=== PATIENT | male | born 1930 | race Caucasian/White ===

== ENCOUNTER 2017-03-12 09:55 | Inpatient (IN) | payer MEDICARE, OTHER ==
--- NOTE | ~2017-03-12 | CN ---
Consultation Report [facility] [address] [place]. [address] NAME: NIKOLAS GUTIERREZ : 30 STATUS : ADM IN [facility]#: [id number] AGE: 86 ADM/REG DATE : 03/12/17 MR#: [id number] REPORT SERV DATE: 03/19/17 DICTATED BY: EULALIO PINZON DATE: 03/19/17 REPORT STATUS : Draft TRANSCRIBED BY: MODL DATE: 03/19/17 ELECTROPHYSIOLOGY CONSULTATION DATE OF CONSULTATION: 03/19/2017 REASON FOR CONSULTATION: Regarding atrial arrhythmia and bradycardia in a patient with known ischemic cardiomyopathy. HISTORY OF PRESENT ILLNESS: Mr. Gutierrez is a very pleasant 86-year-old gentleman, who is a patient of Dr. Andrei Fabian. The patient has a known history of longstanding coronary artery disease, status post two separate bypass procedures, the last performed in 2002. He has had a progressive decline in his LV systolic function to 35%, which occurred despite use of the congestive heart failure medications including carvedilol and irbesartan. He presented to Dr. Fabian's office with signs of overt congestive heart failure, acute on chronic. He was admitted to the hospital, has received IV diuresis, and his symptoms are improving. During his stay here, he was found to be in some form of atrial flutter and paradoxically is in bradycardia with heart rates that have been in the 40s at times. This is very much limited use of appropriate congestive heart failure medications, especially the use of carvedilol. I have been asked to see him to discuss other potential options regarding both his atrial arrhythmia as well as his underlying bradycardia. PAST MEDICAL HISTORY: Notable for: 1. Coronary artery disease, status post CAB on two separate procedures, the last of which was in 2002. 2. Mitral regurgitation. 3. Secondary pulmonary hypertension. 4. Ischemic cardiomyopathy, ejection fraction 35%. 5. CKD 3. 6. Hypertension. 7. Systolic heart failure class 3. FAMILY HISTORY: Negative for premature coronary disease or sudden cardiac . SOCIAL HISTORY: Negative for tobacco. Drinks one cup of caffeinated coffee a day. No history of alcohol use. REVIEW OF SYSTEMS: As noted above. All other systems reviewed and negative. PHYSICAL EXAMINATION: VITAL SIGNS: His blood pressure earlier today was 156/70, his pulse is 60, respirations 16. Pulse has been at times in the 40s. GENERAL: Well developed, well nourished. The patient is comfortable, denies any acute distress. Consultation Report [facility] [address] [place]. [address] NAME: NIKOLAS GUTIERREZ : 30 STATUS : ADM IN PAT#: [id number] AGE: 86 ADM/REG DATE : 03/12/17 MR#: [id number] REPORT SERV DATE: 03/19/17 DICTATED BY: EULALIO PINZON DATE: 03/19/17 REPORT STATUS : Draft TRANSCRIBED BY: DALTON DATE: 03/19/17 HEENT: No icterus. Good dentition. NECK: Supple. No masses or thyromegaly. LUNGS: Breathing comfortably. No rales or wheezes. COR: Normal S1, S2. No S3 or S4. No murmurs, clicks, rubs. No JVD. ABD: Soft, nondistended, nontender. No hepatosplenomegaly. EXT: No clubbing, cyanosis, or edema. Peripheral pulses 2+/= bilaterally. SKIN: Warm and dry. No visible lesions. MS: Chest wall without deformity. No obvious clavicular fractures. NEURO/PSYCH: Oriented X3. No anxiety or depression. DATA: EKG shows very fine atrial flutter waves, most prominent in leads III and aVF, in which they are completely negative, much harder to see in lead II, also appeared to be negative there. Heart rate of 48 beats per minute. QRS duration of 96 milliseconds. QT interval corrected at 488 milliseconds. LABORATORY VALUES: GFR of 25 with a creatinine of 2.38, which is baseline. Electrolytes, BUN and creatinine, white blood cell count, hematocrit, platelet count all within normal limits. IMPRESSION: A pleasant gentleman with the following issues: 1. Class 3 congestive heart failure, acute on chronic with ischemic cardiomyopathy, ejection fraction 35% despite use of Coreg and ARB. These medicines have been limited by both renal insufficiency and underlying bradycardia. 2. Atrial flutter, unclear if this is typical or atypical. Some features suggest it could be typical, although I cannot be absolutely certain. 3. Bradycardia, possibly secondary to the underlying atrial flutter. 4. Renal insufficiency, GFR 25. 5. Pulmonary hypertension. Recommend we could consider placement of a biventricular pacing or defibrillator. The patient does have bradycardia, the patient does have congestive heart failure and if he requires ventricular pacing, it should be in the form of biventricular pacing. His ejection fraction has reduced despite appropriate medications. He is in heart failure on this admission. Another option would be to consider ablating the atrial flutter if it is found to be typical. The way to determine this would be to have him undergo electrophysiology study and do mapping and if it does appear to be a TV-IVC isthmus flutter, we should be able to successfully ablate it. If we do restore sinus rhythm, we may find that the underlying heart rate is significantly higher than what he has in atrial flutter. This may be true because of less stress on the AV node. If he is not bradycardic, then this may obviate the need for a biventricular pacing device with increased risk of long procedure time, hypotension, excessive dye use, all of which are important given his underlying renal insufficiency. I will discuss these issues with Dr. Fabian. In the meantime, the patient is on IV heparin, I would continue this. We will follow him for worsening bradycardia. Consultation Report [facility] [id number] [facility] [place]. [address] NAME: NIKOLAS GUTIERREZ : 30 STATUS : ADM IN [facility]#: [id number] AGE: 86 ADM/REG DATE : 03/12/17 MR#: [id number] REPORT SERV DATE: 03/19/17 DICTATED BY: EULALIO PINZON DATE: 03/19/17 REPORT STATUS : Draft TRANSCRIBED BY: DALTON DATE: 03/19/17 AMARIS/DALTON Eulalio Pinzon M.D. / [id number] CC: MD Bobby Robles Lisa M
--- NOTE | ~2017-03-12 | DS ---
Discharge Summary [facility] [address] [place]. [address] NAME: NIKOLAS VILLATORO : 30 STATUS : DIS IN PAT#: [id number] AGE: 86 ADM/REG DATE : 03/12/17 MR#: [id number] REPORT SERV DATE: 04/11/17 DICTATED BY: MEAGAN FABIAN DATE: 04/10/17 REPORT STATUS : Draft TRANSCRIBED BY: MODJyoti DATE: 04/10/17 Data Collection from hospitalization DISCHARGE DIAGNOSES: 1. Hvsot-[id number] systolic congestive heart failure. 2. Coronary artery disease status post coronary artery bypass grafting. 3. Acute/chronic kidney disease. 4. Hypertension. 5. Type 2 diabetes. 6. Secondary pulmonary hypertension. 7. Ischemic cardiomyopathy. CONSULTATION: Dr. Anthony Hopkins. PROCEDURES PERFORMED: Ablation/pacemaker placement, 03/22/2017. MEDICATIONS: Zyloprim 100 mg daily, Norvasc 5 mg twice a day, Eliquis 2.5 mg twice a day, Halfprin 81 mg daily, Cosopt one drop twice a day in both eyes, Pepcid 20 mg daily, Lasix 40 mg twice a day, Apresoline 50 mg every eight hours, Lantus injection insulin 10 units subcutaneously twice a day, Humalog 10 units subcutaneously before meals, Isordil 20 mg every eight hours, Synthroid 25 mcg daily, Lovaza 3 g daily, Prilosec 20 mg daily, K-Tab 10 mEq as instructed, Zantac 150 mg daily, Crestor 5 mg at bedtime, Travatan one drop daily as instructed. He was instructed not to continue Coreg or spironolactone. CONDITION AT DISCHARGE: Stable. DISPOSITION: The patient was discharged home on an 1800-calorie cardiac/diabetic diet with activities as instructed. He would follow up with me as instructed. He would follow up with Dr. Job Go, 04/26/2017. He would follow up with me one week following discharge. HOSPITAL COURSE: This is an 86-year-old man, who has known coronary heart disease and chronic systolic heart failure. He had developed progressive exertional dyspnea, weight gain, and lower extremity edema over the last several weeks prior to admission. He was recently diagnosed with ischemic cardiomyopathy with a baseline ejection fraction of approximately 35%. This was somewhat decreased from previous baseline of 50%. He was last seen in the Cardiology Clinic in February 2017. He had physical exam findings consistent with right-sided pleural effusion as well as other signs of decompensated congestive heart failure. Lasix dose was increased. The patient failed to have any significant improvement in his symptoms. He presented back to the Cardiology Clinic on the day of this admission and was found to have evidence of worsening volume overload. It was felt that the patient should be admitted for IV diuresis. He was admitted to the hospital at this time for further evaluation and treatment. Upon admission, he was felt to have acute on chronic systolic congestive heart failure. IV Bumex was started. Carvedilol dose was continued. We continued his present dose of irbesartan. Aspirin and Crestor were continued. The patient's baseline creatinine is 1.6- 1.7. The following day, he had mild dizziness. He had 2-3+ edema. Bumex was increased. Discharge Summary [address] [address] NAME: NIKOLAS VILLATORO : 30 STATUS : DIS IN [facility]#: [id number] AGE: 86 ADM/REG DATE : 03/12/17 MR#: [id number] REPORT SERV DATE: 04/11/17 DICTATED BY: MEAGAN FABIAN DATE: 04/10/17 REPORT STATUS : Draft TRANSCRIBED BY: DALTON DATE: 04/10/17 Hydralazine was increased as well. MG inhibitor and ARB were held. On the , he was able to lie flat. He had no chest pain or shortness of breath. He had no new complaints. Speech/language pathology performed a bedside swallow study. There were no overt signs or symptoms of aspiration. Aspiration precautions were in place. He did have some improvement in his dyspnea. He had increasing urine output overnight. Creatinine level was 1.97. On the , he was frustrated as he had no improvement. He had had some mental status changes overnight, but these resolved. The following morning, he had no chest pain. He was still short of breath. Creatinine was 2.86. Dobutamine was added. The next day, his shortness of breath decreased. He had no chest pain. His edema had decreased. Creatinine was 2.42. He had a good response to dobutamine. Lasix was going to be resumed. Aldactone was on hold. His urine output improved. Dobutamine was increased. Lasix was increased. Over the next couple of days, he made slow improvement in his shortness of breath and lower extremity edema. He did have some epistaxis. The patient appeared to be in atrial flutter. The patient was seen by Dr. Anthony Hopkins regarding atrial arrhythmia and bradycardia. During his stay here, he was found to be in some form of atrial flutter and paradoxically was in bradycardia with heart rates that had been in the 40s at times. He had an ejection fraction of 35%. His Coreg and ARB had been limited by both renal insufficiency and underlying bradycardia. An option would be to consider ablation of the atrial flutter if it was found to be typical. We could have him undergo an electrophysiology study and do mapping and if it appeared to be TV-IVC isthmus flutter, we should be able to successfully ablate this. If we do not restore sinus rhythm, we may find that the underlying heart rate is significantly higher than what he has in atrial flutter. If he was not bradycardic, he may have a need for biventricular pacing device with increased risk of long procedure time, hypotension, excessive dye use, all of which are important given his underlying renal insufficiency. IV heparin was continued for now. He was able to lie flat. On 03/22/2017, the patient underwent ablation and pacemaker implantation. He tolerated this well and there were no complications. He had normal device function. Bumex drip was stopped. On 03/23/2017, he was feeling better. He had good urine output. Despite the withdrawal of Bumex, shortness of breath had improved. Dobutamine was decreased. Eliquis was being given for stroke prophylaxis. Amlodipine was increased. He did complain of some neck pain and was given Vicodin. His dyspnea also improved. He had some blood clots in his Garcia catheter. The Garcia was removed. He was in a normal sinus rhythm with ventricular pacing. Dobutamine was discontinued. His acute renal failure was slowly improving. Discharge planning was performed. He had no shortness of breath. He had normal device function. Creatinine level was 2.35. Oral Lasix was increased. On 03/27/2017, the patient complained of left arm pain at the implant site. He was able to ambulate with physical therapy. He had no chest pain or shortness of breath. Discharge instructions were given. Due to his improved and stable condition, he was discharged home with the above-stated instructions. Information collected by: Octavia Will I submit the above information as my discharge summary. TG/MODL Discharge Summary [facility] [address] [place]. [address] NAME: NIKOLAS VILLATORO : 30 STATUS : DIS IN PAT#: [id number] AGE: 86 ADM/REG DATE : 03/12/17 MR#: [id number] REPORT SERV DATE: 04/11/17 DICTATED BY: MEAGAN FABIAN DATE: 04/10/17 REPORT STATUS : Draft TRANSCRIBED BY: DLATON DATE: 04/10/17 Meagan Fabian MD / [id number] CC: MD KRISTIN Robles LISA M Gregg Shander, M.D.
--- NOTE | ~2017-03-12 | TEE ---
Transesophageal Echocardiogram [facility] [address] [place]. [address] NAME: NIKOLAS GUTIERREZ : 30 STATUS : ADM IN [facility]#: [id number] AGE: 86 ADM/REG DATE : 03/12/17 MR#: [id number] REPORT SERV DATE: 03/22/17 DICTATED BY: DATE: REPORT STATUS : Draft TRANSCRIBED BY: MODL DATE: 03/22/17 CHIEF COMPLAINT/REASON FOR PROCEDURE: Atrial fibrillation. Written informed consent obtained. Please see chart for documentation. With the assistance of my Anesthesia colleagues, Mr. Gutierrez was sedated for the procedure with IV propofol. Transesophageal echocardiographic probe was easily placed with one attempt. Salient 2D echocardiographic, spectral Doppler and color flow images were obtained. Following imaging, transesophageal probe was withdrawn. There were no complications. 1. Mildly decreased left ventricular systolic function with a calculated ejection fraction of 47%. 2. Grossly normal right ventricular chamber size and systolic function. 3. Dilated left atrium. No evidence of left atrial thrombus. 4. The right atrium is dilated. There was no evidence of right atrial thrombus. 5. The left atrial appendage was interrogated at multiple levels and depths. There was no evidence of left atrial appendage thrombus. 6. The mitral valve anulus is calcified. The valve leaflets are thickened. There was trivial evidence of mitral valvular regurgitation. 7. The aortic valve was trileaflet, sclerotic, and appears to be mildly stenotic. There was no significant aortic valvular regurgitation. 8. The pulmonary valve was grossly normal. There was no evidence of pulmonary valvular regurgitation. 9. The tricuspid valve was grossly normal. There was no evidence of tricuspid valve regurgitation. 10.There was no evidence of pericardial effusion. 11.The right upper pulmonary vein was interrogated. There was no evidence of pulmonary vein flow reversal. IMPRESSION: 1. Mildly decreased left ventricular systolic function with a calculated ejection fraction of 47%. 2. Mild aortic stenosis. 3. Biatrial dilatation. 4. No evidence of left atrial appendage thrombus. Ruth/DALTON Zhane Leavitt M.D. / [id number] CC: Andrei Fabian MD Transesophageal Echocardiogram [address] [address] NAME: NIKOLAS GUTIERREZ : 30 STATUS : ADM IN [facility]#: [id number] AGE: 86 ADM/REG DATE : 03/12/17 MR#: [id number] REPORT SERV DATE: 03/22/17 DICTATED BY: DATE: REPORT STATUS : Draft TRANSCRIBED BY: MODL DATE: 03/22/17 Zhane Rosales
--- NOTE | ~2017-03-12 | HP ---
History And Physical [facility] [address] [place]. [address] NAME: NIKOLAS GUTIERREZ : 30 STATUS : ADM [facility] PAT#: [id number] AGE: 86 ADM/REG DATE : 03/12/17 MR#: [id number] REPORT SERV DATE: 03/12/17 DICTATED BY: MEAGAN FABIAN DATE: 03/12/17 REPORT STATUS : Draft TRANSCRIBED BY: MODL DATE: 03/12/17 DATE OF ADMISSION: 03/12/2017 CARDIOLOGY ADMISSION HISTORY AND PHYSICAL IDENTIFYING DATA: The patient is an 86-year-old man with known coronary heart disease and chronic systolic heart failure. CHIEF COMPLAINT: Progressive exertional dyspnea, weight gain, and lower extremity edema over the last several weeks. HISTORY OF PRESENT ILLNESS: Mr. Gutierrez is a pleasant 86-year-old man with known coronary heart disease, status post coronary artery bypass grafting surgery. The patient also has recently diagnosed ischemic cardiomyopathy with a baseline ejection fraction of approximately 35%. This is somewhat decreased from the patient's previous baseline of 50%. The patient was last seen in Cardiology Clinic on 02/18/2017. At that time, the patient was noted to have physical exam findings consistent with a right-sided pleural effusion as well as other signs of decompensated congestive heart failure. The patient's Lasix dose was increased at that time. However, the patient failed to have any significant improvement in his symptoms. He presented back to Cardiology Clinic today for followup, and was found to have evidence of worsening volume overload. Given the patient's extreme age, presence of coronary artery disease and also comorbidities including diabetes and stage 3 chronic kidney disease, it was felt that the patient should be admitted for IV diuresis. The patient was therefore electively admitted from Cardiology Clinic for this purpose. At this time, the patient does complain of orthopnea, exertional dyspnea, and some vague fatigue and dizziness on rising from a lying or seated position. He denies chest pain. PAST MEDICAL HISTORY: 1. Chronic systolic heart failure. 2. Ischemic cardiomyopathy. 3. Coronary artery disease, status post coronary artery bypass grafting surgery. 4. Stage 3 chronic kidney disease. 5. Hypertension. 6. Secondary pulmonary hypertension. 7. Type 2 diabetes. PREVIOUS SURGERIES: Significant for coronary artery bypass grafting surgery and otherwise noncontributory. FAMILY HISTORY: Noncontributory. SOCIAL HISTORY: The patient has no significant history of tobacco, alcohol, or drug use. ALLERGIES: THE PATIENT HAS AN ALLERGY TO PENICILLIN WITH AN UNKNOWN REACTION. HOME MEDICATIONS: History And Physical [address] [address] NAME: NIKOLAS GUTIERREZ : 30 STATUS : ADM [facility] PAT#: [id number] AGE: 86 ADM/REG DATE : 03/12/17 MR#: [id number] REPORT SERV DATE: 03/12/17 DICTATED BY: MEAGAN FABIAN DATE: 03/12/17 REPORT STATUS : Draft TRANSCRIBED BY: DALTON DATE: 03/12/17 1. Allopurinol 100 mg p.o. daily. 2. Amlodipine 5 mg p.o. daily. 3. Aspirin 81 mg p.o. daily. 4. Carvedilol 3.125 mg p.o. twice daily. 5. Dorzolamide/timolol ophthalmologic solution one drop to both eyes twice daily. 6. Lasix 40 mg p.o. twice daily. 7. Insulin glargine, unknown dose. 8. Insulin lispro-sliding scale. 9. Avapro 150 mg p.o. twice daily. 10.Synthroid 25 mg daily. 11.[place]-3 fatty acid supplement 2000 mg p.o. twice daily. 12.Omeprazole 20 mg p.o. daily. 13.Crestor 5 mg p.o. at bedtime. 14.Aldactone 25 mg p.o. daily. 15.Travatan 0.004% ophthalmologic drops daily. REVIEW OF SYSTEMS: A complete 12-system review was performed. This is noncontributory except for the pertinent positives and negatives noted in the history of present illness above. PHYSICAL EXAMINATION: VITAL SIGNS: Temperature is 97.2 degrees Fahrenheit, blood pressure on admission is 185/81 mmHg, though this is decreased to approximately 140/80 mmHg after administration of the patient's home medications, respiratory rate is 18, heart rate is 54 beats per minute and regular, oxygen saturation is 95% on room air. CONSTITUTIONAL: The patient is a frail elderly white man, who is in no acute distress. EYES: PERRL, EOMI, clear conjunctiva. HEAD/MNT: NCAT with moist mucous membranes and grossly normal hard and soft palate. NECK: Supple with no obvious thyromegaly or lymphadenopathy CARDIOVASCULAR: There is a regular rhythm with a normal S1 and a physiologically split second heart sound. There is a 1/4 grade 2 murmur noted at the apex. The jugular venous pressure is moderately elevated at approximately 10 cm. PULMONARY: There is dullness to percussion shelter up the right thorax. There are scattered rales in the left lung base. Otherwise, clear to auscultation bilaterally with no wheezing or rhonchi noted. ABDOMINAL: Soft, non-tender, non-distended with no hepatosplenomegaly noted. LOWER EXTREMITIES: There is 3+ bilateral pitting edema below the knees with bilateral stasis dermatitis noted. MUSCULOSKELETAL: Grossly normal strength and range of motion in all extremities INTEGUMENTARY: Skin appears intact with no bruises, wounds or active lesions noted NEURO/PSYC: Alert and oriented x3, with no dysarthria, facial droop or lateralizing weakness noted. 12-LEAD EKG: The patient's 12-lead EKG is pending at this time. His baseline EKG shows normal atrial fibrillation with nonspecific ST/T-wave abnormalities. CHEST X-RAY: A recent chest x-ray demonstrated a large right-sided pleural effusion. History And Physical [address] [address] NAME: NIKOLAS GUTIERREZ : 30 STATUS : ADM [facility] PAT#: [id number] AGE: 86 ADM/REG DATE : 03/12/17 MR#: [id number] REPORT SERV DATE: 03/12/17 DICTATED BY: MEAGAN FABIAN DATE: 03/12/17 REPORT STATUS : Draft TRANSCRIBED BY: MODJyoti DATE: 03/12/17 LABORATORY DATA: Cell count show a white blood cell count of 6.2, hemoglobin 14.5, hematocrit 44, platelets 126. Electrolytes show a sodium of 143, potassium 4.4, chloride is 108, CO2 is 29, BUN 37, creatinine is 2.07, glucose 170. TSH is normal at 3.1, magnesium 1.9. Calcium is 9.2. ASSESSMENT AND PLAN: 1. Hpwpp-[id number] systolic congestive heart failure: The patient will be started on Bumex 1 mg IV q.8 hours. We will adjust for a net diuresis of approximately 2 L per day. The patient will continue his home carvedilol dose. The patient will continue his present dose of irbesartan. 2. Coronary artery disease: A 12-lead ECG will be obtained. The patient will continue aspirin and Crestor. 3. Chronic kidney disease. We will follow the patient's renal function with serial creatinine. We will consider Nephrology consult if the patient's renal function worsen. The patient's baseline creatinine is 1.6 to 1.7. RASHMIH/SHERMANL Meagan Fabian MD / [id number] CC: Meagan Fabian MD
[2017-03-12] MEDS ORDERED: COSOPT OPH (11:04)
[2017-03-12] MEDS ORDERED: TRAVATAN Z 0.004% OPH (11:05)
[2017-03-12] MEDS ORDERED: CRESTOR5 MG PO (11:05)
[2017-03-12] MEDS ORDERED: L40 PO (11:05)
[2017-03-12] MEDS ORDERED: NORV5 PO (11:06)
[2017-03-12] MEDS ORDERED: COREG3 PO (11:06)
[2017-03-12] MEDS ORDERED: HUMALOG SC (11:09)
[2017-03-12] MEDS ORDERED: SYN.025B PO (11:09)
[2017-03-12] MEDS ORDERED: LOVAZA1 GM PO (11:10)
[2017-03-12] MEDS ORDERED: AVAP150 PO (11:10)
[2017-03-12] MEDS ORDERED: PRILO PO (11:10)
[2017-03-12] MEDS ORDERED: Z100 PO (11:10)
[2017-03-12] MEDS ORDERED: SPIRO25 PO (11:10)
[2017-03-12] MEDS ORDERED: LANTUS SC (11:11)
[2017-03-12] MEDS ORDERED: *UNABLE3 (11:11)
[2017-03-12] MEDS ORDERED: HALF81 PO (11:11)
[2017-03-12 11:41] LABS: BASOPHILS 0.5 %; BASOPHILS ABSOLUTE 0.03 10/3/uL (0.0-0.16); EOSINOPHILS 3.3 %; HEMATOCRIT 43.9 % (40.0-51.0); HEMOGLOBIN 14.5 g/dL (13.6-17.8); IMMATURE GRANULOCYTES 0.2 %; IMMATURE GRANULOCYTES ABSOLUTE 0.01 10/3/uL (0.0-0.11); LYMPHOCYTES 27.3 %; LYMPHOCYTES ABSOLUTE 1.68 10/3/uL (0.67-4.30); MEAN CORPUSCULAR HEMOGLOB 30.5 pg (26.0-34.0); MEAN CORPUSCULAR VOLUME 92.4 fL (80-100); MEAN PLATELET VOLUME 10.7 fL (9.2-13.0); MONOCYTES 8.8 %; MONOCYTES ABSOLUTE 0.54 10/3/uL (0.21-1.20); NEUTROPHILS 59.9 %; NEUTROPHILS ABSOLUTE 3.69 10/3/uL (2.02-8.40); PLATELET COUNT 126 10/3/uL (150-400); RBC DISTRIBUTION WIDTH 15.2 % (12.0-16.0); RED CELL COUNT 4.75 10/6/uL (4.7-6.1); WHITE BLOOD CELLS 6.2 10/3/uL (4.5-10.5)
[2017-03-12 11:42] LABS: MANUAL DIFF NO %
[2017-03-12 12:03] LABS: BUN (BLOOD UREA NITROGEN) 37 MG/DL (6-23); CALCIUM, SERUM 9.2 MG/DL (8.5-10.4); CHLORIDE, SERUM 108 MMOL/L (96-112); CO2 (CARBON DIOXIDE) 29 MMOL/L (24-34); CREATININE 2.07 MG/DL (0.70-1.30); GFR AFRICAN AMERICAN 33 ML/MIN (>=60); GFR NON AFRICAN AMERICAN 28 ML/MIN (>=60); GLUCOSE, SERUM 170 MG/DL (60-99); POTASSIUM, SERUM 4.4 MMOL/L (3.5-5.3); SODIUM, SERUM 143 MMOL/L (135-148)
[2017-03-12] MEDS ORDERED: APRES10B PO (14:16)
[2017-03-12] MEDS ORDERED: ZANTAC150 MG PO (14:16)
[2017-03-13 04:37] LABS: BASOPHILS 0.7 %; BASOPHILS ABSOLUTE 0.04 10/3/uL (0.0-0.16); EOSINOPHILS 4.6 %; EOSINOPHILS ABSOLUTE 0.26 10/3/uL (0.0-0.53); HEMATOCRIT 44.9 % (40.0-51.0); HEMOGLOBIN 15.2 g/dL (13.6-17.8); IMMATURE GRANULOCYTES 0.2 %; IMMATURE GRANULOCYTES ABSOLUTE 0.01 10/3/uL (0.0-0.11); LYMPHOCYTES 28.5 %; LYMPHOCYTES ABSOLUTE 1.63 10/3/uL (0.67-4.30); MEAN CORPUS HGB CONC 33.9 g/dL (32.0-36.0); MEAN CORPUSCULAR HEMOGLOB 31.3 pg (26.0-34.0); MEAN CORPUSCULAR VOLUME 92.4 fL (80-100); MEAN PLATELET VOLUME 10.4 fL (9.2-13.0); MONOCYTES 12.4 %; MONOCYTES ABSOLUTE 0.71 10/3/uL (0.21-1.20); NEUTROPHILS 53.6 %; NEUTROPHILS ABSOLUTE 3.06 10/3/uL (2.02-8.40); PLATELET COUNT 131 10/3/uL (150-400); RBC DISTRIBUTION WIDTH 15.2 % (12.0-16.0); RED CELL COUNT 4.86 10/6/uL (4.7-6.1); WHITE BLOOD CELLS 5.7 10/3/uL (4.5-10.5)
[2017-03-13 04:40] LABS: MANUAL DIFF NO %
[2017-03-13 04:53] LABS: BUN (BLOOD UREA NITROGEN) 36 MG/DL (6-23); CALCIUM, SERUM 9.4 MG/DL (8.5-10.4); CHLORIDE, SERUM 107 MMOL/L (96-112); CO2 (CARBON DIOXIDE) 31 MMOL/L (24-34); CREATININE 1.97 MG/DL (0.70-1.30); GFR AFRICAN AMERICAN 35 ML/MIN (>=60); GFR NON AFRICAN AMERICAN 30 ML/MIN (>=60); GLUCOSE, SERUM 97 MG/DL (60-99); POTASSIUM, SERUM 4.2 MMOL/L (3.5-5.3); SODIUM, SERUM 142 MMOL/L (135-148)
[2017-03-13 04:55] LABS: ELLIPTOCYTES 1+ (3-10/OIF) (0-2/OIF); PLATELET ESTIMATE SLT DEC (ADEQUATE)
[2017-03-14 05:59] LABS: HEMATOCRIT 45.8 % (40.0-51.0); HEMOGLOBIN 15.4 g/dL (13.6-17.8); MEAN CORPUS HGB CONC 33.6 g/dL (32.0-36.0); MEAN CORPUSCULAR VOLUME 92.3 fL (80-100); MEAN PLATELET VOLUME 10.2 fL (9.2-13.0); PLATELET COUNT 124 10/3/uL (150-400); RBC DISTRIBUTION WIDTH 15.2 % (12.0-16.0); RED CELL COUNT 4.96 10/6/uL (4.7-6.1); WHITE BLOOD CELLS 5.8 10/3/uL (4.5-10.5)
[2017-03-14 06:00] LABS: MANUAL DIFF YES %
[2017-03-14 07:24] LABS: BUN (BLOOD UREA NITROGEN) 42 MG/DL (6-23); CALCIUM, SERUM 9.2 MG/DL (8.5-10.4); CHLORIDE, SERUM 103 MMOL/L (96-112); CO2 (CARBON DIOXIDE) 30 MMOL/L (24-34); CREATININE 2.06 MG/DL (0.70-1.30); GFR AFRICAN AMERICAN 33 ML/MIN (>=60); GFR NON AFRICAN AMERICAN 28 ML/MIN (>=60); GLUCOSE, SERUM 144 MG/DL (60-99); POTASSIUM, SERUM 4.2 MMOL/L (3.5-5.3); SODIUM, SERUM 137 MMOL/L (135-148)
[2017-03-14 08:16] LABS: BAND NEUTROPHILS 7 %; EOSINOPHILS 6 %; EOSINOPHILS ABSOLUTE (CALC) 0.35 10/3/uL (0.0-0.53); LYMPHOCYTES 28 %; LYMPHOCYTES ABSOLUTE (CALC) 1.62 10/3/uL (0.67-4.30); MONOCYTES 1 %; MONOCYTES ABSOLUTE (CALC) 0.06 10/3/uL (0.21-1.20); NEUTROPHILS ABSOLUTE (CALC) 3.77 10/3/uL (2.02-8.40); SEGMENTED NEUTROPHIL (0) 58 %; TOTAL NUCLEATED CELLS 100
[2017-03-14 08:17] LABS: OVALOCYTES 1+ (3-10/OIF) (0-2/OIF); PLATELET ESTIMATE SLT DEC (ADEQUATE)
[2017-03-15 06:55] LABS: BASOPHILS 0.6 %; BASOPHILS ABSOLUTE 0.04 10/3/uL (0.0-0.16); EOSINOPHILS 3.6 %; EOSINOPHILS ABSOLUTE 0.24 10/3/uL (0.0-0.53); HEMOGLOBIN 14.7 g/dL (13.6-17.8); IMMATURE GRANULOCYTES 0.3 %; IMMATURE GRANULOCYTES ABSOLUTE 0.02 10/3/uL (0.0-0.11); LYMPHOCYTES 32.7 %; LYMPHOCYTES ABSOLUTE 2.21 10/3/uL (0.67-4.30); MEAN CORPUS HGB CONC 33.4 g/dL (32.0-36.0); MEAN CORPUSCULAR HEMOGLOB 30.6 pg (26.0-34.0); MEAN CORPUSCULAR VOLUME 91.7 fL (80-100); MEAN PLATELET VOLUME 10.1 fL (9.2-13.0); MONOCYTES 12.9 %; MONOCYTES ABSOLUTE 0.87 10/3/uL (0.21-1.20); NEUTROPHILS 49.9 %; NEUTROPHILS ABSOLUTE 3.37 10/3/uL (2.02-8.40); PLATELET COUNT 127 10/3/uL (150-400); WHITE BLOOD CELLS 6.8 10/3/uL (4.5-10.5)
[2017-03-15 06:56] LABS: MANUAL DIFF NO %
[2017-03-15 07:06] LABS: BUN (BLOOD UREA NITROGEN) 47 MG/DL (6-23); CHLORIDE, SERUM 102 MMOL/L (96-112); CO2 (CARBON DIOXIDE) 31 MMOL/L (24-34); CREATININE 2.22 MG/DL (0.70-1.30); GFR AFRICAN AMERICAN 30 ML/MIN (>=60); GFR NON AFRICAN AMERICAN 26 ML/MIN (>=60); GLUCOSE, SERUM 149 MG/DL (60-99); POTASSIUM, SERUM 4.5 MMOL/L (3.5-5.3); SODIUM, SERUM 139 MMOL/L (135-148)
[2017-03-16 06:38] LABS: CALCIUM, SERUM 9.4 MG/DL (8.5-10.4); CHLORIDE, SERUM 98 MMOL/L (96-112); CO2 (CARBON DIOXIDE) 31 MMOL/L (24-34); SODIUM, SERUM 134 MMOL/L (135-148)
[2017-03-16 06:39] LABS: BUN (BLOOD UREA NITROGEN) 57 MG/DL (6-23); CREATININE 2.86 MG/DL (0.70-1.30); GFR AFRICAN AMERICAN 22 ML/MIN (>=60); GFR NON AFRICAN AMERICAN 19 ML/MIN (>=60); GLUCOSE, SERUM 211 MG/DL (60-99)
[2017-03-17 04:04] LABS: BASOPHILS 0.3 %; BASOPHILS ABSOLUTE 0.02 10/3/uL (0.0-0.16); EOSINOPHILS 3.2 %; EOSINOPHILS ABSOLUTE 0.21 10/3/uL (0.0-0.53); HEMOGLOBIN 13.2 g/dL (13.6-17.8); IMMATURE GRANULOCYTES 0.2 %; IMMATURE GRANULOCYTES ABSOLUTE 0.01 10/3/uL (0.0-0.11); LYMPHOCYTES 30.4 %; LYMPHOCYTES ABSOLUTE 1.98 10/3/uL (0.67-4.30); MEAN CORPUS HGB CONC 34.2 g/dL (32.0-36.0); MEAN CORPUSCULAR HEMOGLOB 30.6 pg (26.0-34.0); MEAN CORPUSCULAR VOLUME 89.4 fL (80-100); MEAN PLATELET VOLUME 10.5 fL (9.2-13.0); MONOCYTES 15.5 %; MONOCYTES ABSOLUTE 1.01 10/3/uL (0.21-1.20); NEUTROPHILS 50.4 %; NEUTROPHILS ABSOLUTE 3.28 10/3/uL (2.02-8.40); PLATELET COUNT 130 10/3/uL (150-400); RBC DISTRIBUTION WIDTH 14.4 % (12.0-16.0); RED CELL COUNT 4.32 10/6/uL (4.7-6.1); WHITE BLOOD CELLS 6.5 10/3/uL (4.5-10.5)
[2017-03-17 04:13] LABS: HEMATOCRIT 38.6 % (40.0-51.0)
[2017-03-17 04:14] LABS: MANUAL DIFF NO %
[2017-03-17 04:15] LABS: BUN (BLOOD UREA NITROGEN) 57 MG/DL (6-23); CALCIUM, SERUM 8.8 MG/DL (8.5-10.4); CHLORIDE, SERUM 102 MMOL/L (96-112); CO2 (CARBON DIOXIDE) 28 MMOL/L (24-34); CREATININE 2.42 MG/DL (0.70-1.30); GFR AFRICAN AMERICAN 27 ML/MIN (>=60); GFR NON AFRICAN AMERICAN 23 ML/MIN (>=60); GLUCOSE, SERUM 126 MG/DL (60-99); POTASSIUM, SERUM 4.3 MMOL/L (3.5-5.3); SODIUM, SERUM 138 MMOL/L (135-148)
[2017-03-18 04:44] LABS: INTERNATIONAL NORMAL RATI 1.3 UNITS (-); PROTIME (NOT ORD) 16.1 SEC (12.0-14.5)
[2017-03-18 04:59] LABS: BUN (BLOOD UREA NITROGEN) 55 MG/DL (6-23); CALCIUM, SERUM 8.9 MG/DL (8.5-10.4); CHLORIDE, SERUM 100 MMOL/L (96-112); CO2 (CARBON DIOXIDE) 28 MMOL/L (24-34); CREATININE 2.37 MG/DL (0.70-1.30); GFR AFRICAN AMERICAN 28 ML/MIN (>=60); GFR NON AFRICAN AMERICAN 24 ML/MIN (>=60); GLUCOSE, SERUM 145 MG/DL (60-99); POTASSIUM, SERUM 4.3 MMOL/L (3.5-5.3); SODIUM, SERUM 136 MMOL/L (135-148)
[2017-03-19 06:43] LABS: INTERNATIONAL NORMAL RATI 1.3 UNITS (-); PROTIME (NOT ORD) 15.6 SEC (12.0-14.5)
[2017-03-19 06:48] LABS: BASOPHILS 0.1 %; BASOPHILS ABSOLUTE 0.01 10/3/uL (0.0-0.16); EOSINOPHILS 3.9 %; EOSINOPHILS ABSOLUTE 0.28 10/3/uL (0.0-0.53); HEMATOCRIT 36.4 % (40.0-51.0); HEMOGLOBIN 12.5 g/dL (13.6-17.8); IMMATURE GRANULOCYTES 0.3 %; IMMATURE GRANULOCYTES ABSOLUTE 0.02 10/3/uL (0.0-0.11); LYMPHOCYTES 25.5 %; LYMPHOCYTES ABSOLUTE 1.82 10/3/uL (0.67-4.30); MANUAL DIFF NO %; MEAN CORPUS HGB CONC 34.3 g/dL (32.0-36.0); MEAN CORPUSCULAR HEMOGLOB 31.2 pg (26.0-34.0); MEAN CORPUSCULAR VOLUME 90.8 fL (80-100); MEAN PLATELET VOLUME 10.1 fL (9.2-13.0); MONOCYTES 15.1 %; MONOCYTES ABSOLUTE 1.08 10/3/uL (0.21-1.20); NEUTROPHILS 55.1 %; NEUTROPHILS ABSOLUTE 3.93 10/3/uL (2.02-8.40); PLATELET COUNT 124 10/3/uL (150-400); RBC DISTRIBUTION WIDTH 14.1 % (12.0-16.0); RED CELL COUNT 4.01 10/6/uL (4.7-6.1); WHITE BLOOD CELLS 7.1 10/3/uL (4.5-10.5)
[2017-03-19 06:57] LABS: CALCIUM, SERUM 9.3 MG/DL (8.5-10.4); CHLORIDE, SERUM 99 MMOL/L (96-112); CO2 (CARBON DIOXIDE) 26 MMOL/L (24-34); CREATININE 2.38 MG/DL (0.70-1.30); GFR AFRICAN AMERICAN 28 ML/MIN (>=60); GFR NON AFRICAN AMERICAN 24 ML/MIN (>=60); POTASSIUM, SERUM 4.1 MMOL/L (3.5-5.3); SODIUM, SERUM 134 MMOL/L (135-148)
[2017-03-19 06:58] LABS: BUN (BLOOD UREA NITROGEN) 60 MG/DL (6-23); GLUCOSE, SERUM 178 MG/DL (60-99)
[2017-03-20 06:16] LABS: BASOPHILS 0.2 %; BASOPHILS ABSOLUTE 0.02 10/3/uL (0.0-0.16); EOSINOPHILS 2.3 %; EOSINOPHILS ABSOLUTE 0.19 10/3/uL (0.0-0.53); HEMATOCRIT 38.3 % (40.0-51.0); HEMOGLOBIN 13.1 g/dL (13.6-17.8); IMMATURE GRANULOCYTES 0.4 %; IMMATURE GRANULOCYTES ABSOLUTE 0.03 10/3/uL (0.0-0.11); LYMPHOCYTES 23.2 %; LYMPHOCYTES ABSOLUTE 1.92 10/3/uL (0.67-4.30); MEAN CORPUS HGB CONC 34.2 g/dL (32.0-36.0); MEAN CORPUSCULAR HEMOGLOB 30.7 pg (26.0-34.0); MEAN CORPUSCULAR VOLUME 89.7 fL (80-100); MEAN PLATELET VOLUME 10.2 fL (9.2-13.0); MONOCYTES 11.9 %; MONOCYTES ABSOLUTE 0.99 10/3/uL (0.21-1.20); NEUTROPHILS ABSOLUTE 5.14 10/3/uL (2.02-8.40); PLATELET COUNT 135 10/3/uL (150-400); RBC DISTRIBUTION WIDTH 14.1 % (12.0-16.0); RED CELL COUNT 4.27 10/6/uL (4.7-6.1); WHITE BLOOD CELLS 8.3 10/3/uL (4.5-10.5)
[2017-03-20 06:17] LABS: MANUAL DIFF NO %
[2017-03-20 06:21] LABS: INTERNATIONAL NORMAL RATI 1.3 UNITS (-); PROTIME (NOT ORD) 16.1 SEC (12.0-14.5)
[2017-03-20 06:24] LABS: PARTIAL THROMBO TIME 91.1 SEC (22.5-37.2)
[2017-03-20 06:27] LABS: BUN (BLOOD UREA NITROGEN) 59 MG/DL (6-23); CALCIUM, SERUM 9.4 MG/DL (8.5-10.4); CHLORIDE, SERUM 98 MMOL/L (96-112); CO2 (CARBON DIOXIDE) 26 MMOL/L (24-34); CREATININE 2.41 MG/DL (0.70-1.30); GFR AFRICAN AMERICAN 27 ML/MIN (>=60); GFR NON AFRICAN AMERICAN 23 ML/MIN (>=60); GLUCOSE, SERUM 193 MG/DL (60-99); SODIUM, SERUM 135 MMOL/L (135-148)
[2017-03-21 01:18] LABS: HEMOGLOBIN 11.9 g/dL (13.6-17.8); MEAN CORPUS HGB CONC 35.2 g/dL (32.0-36.0); MEAN CORPUSCULAR HEMOGLOB 31.4 pg (26.0-34.0); MEAN CORPUSCULAR VOLUME 89.2 fL (80-100); PLATELET COUNT 134 10/3/uL (150-400); RBC DISTRIBUTION WIDTH 13.9 % (12.0-16.0); RED CELL COUNT 3.79 10/6/uL (4.7-6.1); WHITE BLOOD CELLS 8.1 10/3/uL (4.5-10.5)
[2017-03-21 01:26] LABS: HEMATOCRIT 33.8 % (40.0-51.0); MANUAL DIFF YES %
[2017-03-21 01:31] LABS: BUN (BLOOD UREA NITROGEN) 68 MG/DL (6-23); CALCIUM, SERUM 8.4 MG/DL (8.5-10.4); CHLORIDE, SERUM 96 MMOL/L (96-112); CO2 (CARBON DIOXIDE) 29 MMOL/L (24-34); CREATININE 2.55 MG/DL (0.70-1.30); GFR AFRICAN AMERICAN 25 ML/MIN (>=60); GFR NON AFRICAN AMERICAN 22 ML/MIN (>=60); GLUCOSE, SERUM 307 MG/DL (60-99); SODIUM, SERUM 134 MMOL/L (135-148)
[2017-03-21 01:37] LABS: PARTIAL THROMBO TIME 113.2 SEC (22.5-37.2)
[2017-03-21 02:12] LABS: BAND NEUTROPHILS 2 %; BURR CELLS 1+ (3-10/OIF) (0-2/OIF); ELLIPTOCYTES 1+ (3-10/OIF) (0-2/OIF); EOSINOPHILS 1 %; EOSINOPHILS ABSOLUTE (CALC) 0.08 10/3/uL (0.0-0.53); LYMPHOCYTES 28 %; LYMPHOCYTES ABSOLUTE (CALC) 2.27 10/3/uL (0.67-4.30); MONOCYTES 6 %; MONOCYTES ABSOLUTE (CALC) 0.49 10/3/uL (0.21-1.20); NEUTROPHILS ABSOLUTE (CALC) 5.27 10/3/uL (2.02-8.40); PLATELET ESTIMATE SLT DEC (ADEQUATE); SEGMENTED NEUTROPHIL (0) 63 %; TOTAL NUCLEATED CELLS 100
[2017-03-21 02:33] LABS: INTERNATIONAL NORMAL RATI 1.4 UNITS (-); PROTIME (NOT ORD) 16.6 SEC (12.0-14.5)
[2017-03-22 05:12] LABS: BASOPHILS 0.2 %; BASOPHILS ABSOLUTE 0.02 10/3/uL (0.0-0.16); EOSINOPHILS 2.6 %; EOSINOPHILS ABSOLUTE 0.22 10/3/uL (0.0-0.53); HEMATOCRIT 36.5 % (40.0-51.0); HEMOGLOBIN 12.3 g/dL (13.6-17.8); IMMATURE GRANULOCYTES 0.5 %; IMMATURE GRANULOCYTES ABSOLUTE 0.04 10/3/uL (0.0-0.11); LYMPHOCYTES 21.6 %; LYMPHOCYTES ABSOLUTE 1.81 10/3/uL (0.67-4.30); MEAN CORPUS HGB CONC 33.7 g/dL (32.0-36.0); MEAN PLATELET VOLUME 10.2 fL (9.2-13.0); MONOCYTES 11.4 %; MONOCYTES ABSOLUTE 0.95 10/3/uL (0.21-1.20); NEUTROPHILS 63.7 %; NEUTROPHILS ABSOLUTE 5.33 10/3/uL (2.02-8.40); PLATELET COUNT 163 10/3/uL (150-400); RBC DISTRIBUTION WIDTH 14.4 % (12.0-16.0); WHITE BLOOD CELLS 8.4 10/3/uL (4.5-10.5)
[2017-03-22 05:19] LABS: INTERNATIONAL NORMAL RATI 1.3 UNITS (-); PARTIAL THROMBO TIME 40.2 SEC (22.5-37.2); PROTIME (NOT ORD) 15.7 SEC (12.0-14.5)
[2017-03-22 05:23] LABS: BUN (BLOOD UREA NITROGEN) 70 MG/DL (6-23); CALCIUM, SERUM 8.9 MG/DL (8.5-10.4); CHLORIDE, SERUM 96 MMOL/L (96-112); CO2 (CARBON DIOXIDE) 31 MMOL/L (24-34); CREATININE 2.47 MG/DL (0.70-1.30); GFR AFRICAN AMERICAN 26 ML/MIN (>=60); GFR NON AFRICAN AMERICAN 23 ML/MIN (>=60); MANUAL DIFF NO %; POTASSIUM, SERUM 3.8 MMOL/L (3.5-5.3); SODIUM, SERUM 133 MMOL/L (135-148)
[2017-03-22 05:25] LABS: GLUCOSE, SERUM 172 MG/DL (60-99)
[2017-03-23 05:54] LABS: INTERNATIONAL NORMAL RATI 1.3 UNITS (-); PROTIME (NOT ORD) 15.9 SEC (12.0-14.5)
[2017-03-23 06:06] LABS: BUN (BLOOD UREA NITROGEN) 65 MG/DL (6-23); CALCIUM, SERUM 9.5 MG/DL (8.5-10.4); CHLORIDE, SERUM 95 MMOL/L (96-112); CO2 (CARBON DIOXIDE) 31 MMOL/L (24-34); CREATININE 2.61 MG/DL (0.70-1.30); GFR AFRICAN AMERICAN 25 ML/MIN (>=60); GFR NON AFRICAN AMERICAN 21 ML/MIN (>=60); GLUCOSE, SERUM 198 MG/DL (60-99); POTASSIUM, SERUM 4.1 MMOL/L (3.5-5.3); SODIUM, SERUM 134 MMOL/L (135-148)
[2017-03-24 06:59] LABS: HEMATOCRIT 35.1 % (40.0-51.0); HEMOGLOBIN 12.2 g/dL (13.6-17.8); MEAN CORPUS HGB CONC 34.8 g/dL (32.0-36.0); MEAN CORPUSCULAR HEMOGLOB 31.3 pg (26.0-34.0); MEAN PLATELET VOLUME 9.8 fL (9.2-13.0); PLATELET COUNT 165 10/3/uL (150-400); RBC DISTRIBUTION WIDTH 14.1 % (12.0-16.0); WHITE BLOOD CELLS 8.3 10/3/uL (4.5-10.5)
[2017-03-24 07:04] LABS: MANUAL DIFF YES %
[2017-03-24 07:15] LABS: BUN (BLOOD UREA NITROGEN) 65 MG/DL (6-23); CALCIUM, SERUM 8.8 MG/DL (8.5-10.4); CHLORIDE, SERUM 97 MMOL/L (96-112); CO2 (CARBON DIOXIDE) 30 MMOL/L (24-34); GFR AFRICAN AMERICAN 29 ML/MIN (>=60); GFR NON AFRICAN AMERICAN 25 ML/MIN (>=60); SODIUM, SERUM 132 MMOL/L (135-148)
[2017-03-24 07:16] LABS: GLUCOSE, SERUM 114 MG/DL (60-99)
[2017-03-24 07:46] LABS: BAND NEUTROPHILS 8 %; LYMPHOCYTES 18 %; LYMPHOCYTES ABSOLUTE (CALC) 1.49 10/3/uL (0.67-4.30); MONOCYTES 11 %; MONOCYTES ABSOLUTE (CALC) 0.91 10/3/uL (0.21-1.20); NEUTROPHILS ABSOLUTE (CALC) 5.89 10/3/uL (2.02-8.40); PLATELET ESTIMATE ADQ (ADEQUATE); RBC MORPHOLOGY NORM (NORMAL); SEGMENTED NEUTROPHIL (0) 63 %; TOTAL NUCLEATED CELLS 100
[2017-03-25 07:32] LABS: HEMATOCRIT 33.6 % (40.0-51.0); HEMOGLOBIN 11.3 g/dL (13.6-17.8); MANUAL DIFF YES %; MEAN CORPUS HGB CONC 33.6 g/dL (32.0-36.0); MEAN CORPUSCULAR HEMOGLOB 30.3 pg (26.0-34.0); MEAN CORPUSCULAR VOLUME 90.1 fL (80-100); MEAN PLATELET VOLUME 9.8 fL (9.2-13.0); PLATELET COUNT 169 10/3/uL (150-400); RBC DISTRIBUTION WIDTH 14.4 % (12.0-16.0); RED CELL COUNT 3.73 10/6/uL (4.7-6.1); WHITE BLOOD CELLS 7.9 10/3/uL (4.5-10.5)
[2017-03-25 07:38] LABS: BUN (BLOOD UREA NITROGEN) 67 MG/DL (6-23); CALCIUM, SERUM 9.2 MG/DL (8.5-10.4); CHLORIDE, SERUM 96 MMOL/L (96-112); CO2 (CARBON DIOXIDE) 30 MMOL/L (24-34); CREATININE 2.25 MG/DL (0.70-1.30); GFR AFRICAN AMERICAN 30 ML/MIN (>=60); GFR NON AFRICAN AMERICAN 25 ML/MIN (>=60); POTASSIUM, SERUM 4.4 MMOL/L (3.5-5.3); SODIUM, SERUM 134 MMOL/L (135-148)
[2017-03-25 07:39] LABS: GLUCOSE, SERUM 144 MG/DL (60-99)
[2017-03-25 07:58] LABS: BAND NEUTROPHILS 6 %; EOSINOPHILS 4 %; EOSINOPHILS ABSOLUTE (CALC) 0.32 10/3/uL (0.0-0.53); LYMPHOCYTES 14 %; LYMPHOCYTES ABSOLUTE (CALC) 1.11 10/3/uL (0.67-4.30); MONOCYTES 12 %; MONOCYTES ABSOLUTE (CALC) 0.95 10/3/uL (0.21-1.20); NEUTROPHILS ABSOLUTE (CALC) 5.53 10/3/uL (2.02-8.40); PLATELET ESTIMATE ADQ (ADEQUATE); RBC MORPHOLOGY NORM (NORMAL); SEGMENTED NEUTROPHIL (0) 64 %; TOTAL NUCLEATED CELLS 100
[2017-03-26 06:20] LABS: HEMATOCRIT 35.9 % (40.0-51.0); HEMOGLOBIN 12.3 g/dL (13.6-17.8); MANUAL DIFF YES %; MEAN CORPUS HGB CONC 34.3 g/dL (32.0-36.0); MEAN CORPUSCULAR VOLUME 90.4 fL (80-100); MEAN PLATELET VOLUME 9.3 fL (9.2-13.0); PLATELET COUNT 202 10/3/uL (150-400); RBC DISTRIBUTION WIDTH 14.2 % (12.0-16.0); RED CELL COUNT 3.97 10/6/uL (4.7-6.1); WHITE BLOOD CELLS 8.1 10/3/uL (4.5-10.5)
[2017-03-26 06:33] LABS: BUN (BLOOD UREA NITROGEN) 69 MG/DL (6-23); CALCIUM, SERUM 10.1 MG/DL (8.5-10.4); CHLORIDE, SERUM 97 MMOL/L (96-112); CO2 (CARBON DIOXIDE) 30 MMOL/L (24-34); CREATININE 2.35 MG/DL (0.70-1.30); GFR AFRICAN AMERICAN 28 ML/MIN (>=60); GFR NON AFRICAN AMERICAN 24 ML/MIN (>=60); GLUCOSE, SERUM 167 MG/DL (60-99); POTASSIUM, SERUM 4.8 MMOL/L (3.5-5.3); SODIUM, SERUM 134 MMOL/L (135-148)
[2017-03-26 06:41] LABS: BASOPHILS 1 %; BASOPHILS ABSOLUTE (CALC) 0.08 10/3/uL (0.0-0.16); EOSINOPHILS 2 %; EOSINOPHILS ABSOLUTE (CALC) 0.16 10/3/uL (0.0-0.53); LYMPHOCYTES 15 %; LYMPHOCYTES ABSOLUTE (CALC) 1.22 10/3/uL (0.67-4.30); MONOCYTES 10 %; MONOCYTES ABSOLUTE (CALC) 0.81 10/3/uL (0.21-1.20); NEUTROPHILS ABSOLUTE (CALC) 5.83 10/3/uL (2.02-8.40); OVALOCYTES 1+ (3-10/OIF) (0-2/OIF); PLATELET ESTIMATE ADQ (ADEQUATE); SEGMENTED NEUTROPHIL (0) 72 %; TEARDROP SHAPED RBCS FEW (3-10/OIF); TOTAL NUCLEATED CELLS 100
[2017-03-27 06:38] LABS: BUN (BLOOD UREA NITROGEN) 70 MG/DL (6-23); CHLORIDE, SERUM 98 MMOL/L (96-112); CO2 (CARBON DIOXIDE) 26 MMOL/L (24-34); CREATININE 2.24 MG/DL (0.70-1.30); GFR AFRICAN AMERICAN 30 ML/MIN (>=60); GFR NON AFRICAN AMERICAN 26 ML/MIN (>=60); GLUCOSE, SERUM 146 MG/DL (60-99); POTASSIUM, SERUM 4.8 MMOL/L (3.5-5.3); SODIUM, SERUM 132 MMOL/L (135-148)
[2017-03-27 06:39] LABS: CALCIUM, SERUM 8.7 MG/DL (8.5-10.4)
[2017-03-27] MEDS ORDERED: NORV5 PO (14:25)
[2017-03-27] MEDS ORDERED: ELIQUIS 2.5 MG2.5 MG PO (14:26)
[2017-03-27] MEDS ORDERED: PEP20 PO (14:28)
[2017-03-27] MEDS ORDERED: ISORDIL10 (14:31)
[2017-03-27] MEDS ORDERED: K-TABS10 MEQ PO (14:33)
[2017-03-27] MEDS ORDERED: APRES50 PO (14:34)
== END 2017-03-27 17:15 | disposition home health service (06) | DRG 242 ==
LOC: 7NO 09:55
PROVIDERS: Internal Medicine; Internal Medicine Cardiovascular Disease; Nurse Practitioner Family
PROC: 4A023FZ Measurement of Cardiac Rhythm, Percutaneous Approach (ICD-10-PCS; principal; 2017-03-22)
PROC: 0JH607Z Insertion of Cardiac Resynchronization Pacemaker Pulse Generator into Chest Subcutaneous Tissue and Fascia, Open Approach (ICD-10-PCS; 2017-03-22)
PROC: 02H43JZ Insertion of Pacemaker Lead into Coronary Vein, Percutaneous Approach (ICD-10-PCS; 2017-03-22)
PROC: 02583ZZ Destruction of Conduction Mechanism, Percutaneous Approach (ICD-10-PCS; 2017-03-22)
PROC: 4A0234Z Measurement of Cardiac Electrical Activity, Percutaneous Approach (ICD-10-PCS; 2017-03-22)
PROC: 02K83ZZ Map Conduction Mechanism, Percutaneous Approach (ICD-10-PCS; 2017-03-22)
PROC: 02H63JZ Insertion of Pacemaker Lead into Right Atrium, Percutaneous Approach (ICD-10-PCS; 2017-03-22)
PROC: 02HK3JZ Insertion of Pacemaker Lead into Right Ventricle, Percutaneous Approach (ICD-10-PCS; 2017-03-22)
DX: I13.0 Hypertensive heart and chronic kidney disease with heart failure and stage 1 through stage 4 chronic kidney disease, or unspecified chronic kidney disease (principal); I50.23 Acute on chronic systolic (congestive) heart failure; N17.9 Acute kidney failure, unspecified; I27.2 Other secondary pulmonary hypertension; E11.22 Type 2 diabetes mellitus with diabetic chronic kidney disease; I25.5 Ischemic cardiomyopathy; I48.3 Typical atrial flutter; I25.10 Atherosclerotic heart disease of native coronary artery without angina pectoris; E11.9 Type 2 diabetes mellitus without complications; Z95.1 Presence of aortocoronary bypass graft; N18.3 Chronic kidney disease, stage 3 (moderate); Z88.0 Allergy status to penicillin; Z79.82 Long term (current) use of aspirin; Z79.4 Long term (current) use of insulin
CPT/HCPCS: 33208; 33225; 71010; 71020; 80048; 82272; 82962; 83036; 83735; 84443; 85025; 85610; 85730; 92610-GN; 93005; 93312; 93320; 93325; 93613; 93621; 93653; 97161-GP; A9270-GY; C1732; C1769; C1781; C1887; C1892; C1894; C1898; C1900; C2621; G8978-CJ-GP; G8979-CJ-GP; G8980-CJ-GP; G8996-CI-GN; G8997-CI-GN; G8998-CI-GN; J0690; J2405; J2550; Q9967